=== PATIENT | female | born 1995 ===

== ENCOUNTER 2018-10-11 14:56 | Emergency (ER) | payer SELFPAY ==
[2018-10-11 15:02] VITALS: RESP 18
[2018-10-11] MEDS ORDERED: Sodium Chloride 0.9% 1,000 ML IV STA (15:50)
--- NOTE | 2018-10-11 15:52 | C.PDOC ---
History Of Present Illness 23 y/o F currently on period, states normal time and flow, no PMHx p/w vomiting, diarrhea, abdominal cramping since awakening this morning. Patient states drank alcohol last night. Patient reports constant lower abdominal cramping, n onradiating. States has never had this pain before. Reports NBNB vomiting x 10 and NB diarrhea x 5. Denies camping/hiking, recent travel, recent antibiotics, sick contacts. Time Seen by Provider: 10/11/18 15:27 Chief Complaint (Nursing): Abdominal Pain Past Medical History Vital Signs: Last Vital Signs Temp 97.5 F L 10/11/18 14:59 Pulse 75 10/11/18 14:59 Resp 18 10/11/18 14:59 BP 102/68 10/11/18 14:59 Pulse Ox 95 10/11/18 14:59 Primary Care Provider: FAMILY PROVIDER,NO Family History: States: No Known Family Hx - Social History Hx Alcohol Use: Yes Hx Substance Use: No - Immunization History Hx Tetanus Toxoid Vaccination: No Hx Influenza Vaccination: No Hx Pneumococcal Vaccination: No Review Of Systems Except As Marked, All Systems Reviewed And Found Negative. Constitutional: Negative for: Fever Respiratory: Negative for: Shortness of Breath Physical Exam - Physical Exam Additional Physical Exam Comments: Constitutional: No acute distress. Head: Normocephalic. Atraumatic. Eyes: PERRL. ENT: Moist mucous membranes. Neck: Supple. Cardiovascular: Regular rate. Radial pulse 2+ bilaterally. Chest: No tenderness. Respiratory: Clear to auscultation bilaterally. GI: Lower abdominal tenderness without guarding or rebound. Back: No CVA tenderness. Musculoskeletal: No tenderness or swelling of extremities. Skin: No rash. Neurologic: Alert, no focal deficit. ED Course And Treatment - Laboratory Results Result Diagrams: 10/11/18 16:24 10/11/18 16:24 O2 Sat by Pulse Oximetry: 95 (RA) Pulse Ox Interpretation: Normal Medical Decision Making Medical Decision Making: Patient states she feels much better. Discharged home, f/u primary care, return to ED for worsening pain, fever, vomiting, dyspnea, or any other problem. Disposition - Disposition Disposition: HOME/ ROUTINE Disposition Time: 18:50 Condition: GOOD Prescriptions: Ibuprofen [Motrin] 1 tab PO Q6 #30 tab Ondansetron ODT [Zofran ODT] 4 mg PO Q8 #12 odt Instructions: Viral Gastroenteritis, Premenstrual Syndrome (PMS) and Premenstrual Dysphoric Disorder (PMDD) Forms: [employer] ([employer]) - Clinical Impression Clinical Impression: Vomiting, Diarrhea, Abdominal cramping
[2018-10-11] MEDS ORDERED: Sodium Chloride 0.9% 1,000 ML ONE (16:04)
[2018-10-11 16:27] LABS: BASO % 0.5 % (0.0-2.0); EOS % 0.1 % (0.0-4.0); HEMOGLOBIN 13.4 g/dL (11.0-16.0); LYMPH # 0.8 K/uL (1.0-4.3); LYMPH % 7.8 % (20.0-40.0); MEAN CORPUSCULAR HEMOGLOBIN 27.7 pg (27.0-31.0); MEAN CORPUSCULAR HGB CONC 32.9 g/dL (33.0-37.0); MEAN PLATELET VOLUME 9.9 fL (7.2-11.7); MONO # 0.4 K/uL (0.0-0.8); MONO % 3.5 % (0.0-10.0); NEUT % 88.1 % (50.0-75.0); NRBC % 0.1 % (0.0-2.0); PLATELET COUNT 223 K/uL (130-400); RBC 4.85 Mil/uL (3.80-5.20); RED CELL DISTRIBUTION WIDTH 14.4 % (11.5-14.5); WHITE BLOOD COUNT 10.2 K/uL (4.8-10.8)
[2018-10-11 16:43] LABS: ALB/GLOB RATIO 1.2 (1.0-2.1); ALBUMIN 4.6 g/dL (3.5-5.0); ALT/SGPT 22 U/L (9-52); AST/SGOT 32 U/L (14-36); BLOOD UREA NITROGEN 11 mg/dL (7-17); CALCIUM 9.3 mg/dl (8.6-10.4); GFR NON-AFRICAN AMERICAN > 60; LIPASE 54 U/L (23-300)
[2018-10-11 17:01] LABS: LYMPHOCYTE 7 % (20-40); MONOCYTE 4 % (0-10); NEUTROPHIL 89 % (50-75); PLATELET ESTIMATE NORMAL (NORMAL); TOTAL CELLS COUNTED 100
[2018-10-11 17:02] LABS: ANISOCYTOSIS SLIGHT; HYPOCHROMIC SLIGHT; LARGE PLATELETS PRESENT
[2018-10-11 17:35] LABS: HCG,QUALITATIVE URINE NEGATIVE (NEGATIVE)
[2018-10-11 17:40] LABS: SQUAMOUS EPITHIAL 1 /hpf (0-5); URINE BILIRUBIN NEGATIVE (NEGATIVE); URINE BLOOD 3+ (NEGATIVE); URINE CLARITY Clear (Clear); URINE COLOR Yellow (YELLOW); URINE GLUCOSE (UA) NORMAL (Normal); URINE LEUKOCYTE ESTERASE NEG Leu/uL (Negative); URINE PROTEIN 1+ mg/dL (NEGATIVE); URINE UROBILINOGEN NORMAL mg/dL (0.2-1.0)
[2018-10-11 18:04] VITALS: BP 92/54; PULSE 80; TEMP 97.9
[2018-10-11 18:52] VITALS: O2SAT 95
== END 2018-10-11 19:02 | disposition home or self-care (01) ==
LOC: C.ER 14:56
DX: R11.10 Vomiting, unspecified (principal); R19.7 Diarrhea, unspecified; R10.9 Unspecified abdominal pain
CPT/HCPCS: 80053; 81001; 81025; 83690; 83735; 84100; 84703; 85025; 87086; 96374; 96375; 99284; J1885; J2405; J7030